=== PATIENT | male | born 1965 | race Asian ===

== ENCOUNTER 2024-11-10 09:59 | Emergency (ER) | payer BC, SELFPAY ==
[2024-11-10 10:27] VITALS: BP 125/90
--- NOTE | 2024-11-10 11:28 | ED.GENMED ---
History of Present Illness
General
Chief Complaint: Musculo-Skeletal Complaint
Time Seen by Provider: 11/10/24 10:58
History of Present Illness
History of Present Illness:
Patient is a 59-year-old man who is otherwise healthy presenting to the emergency department for right hip pain. Patient states that 2 days ago he was exercising and working out his legs. Later that day and the next days noticed pain to right hip.
He states that it is only reproducible in certain positions. He denies any numbness tingling. No radiation. No back pain. He has had sciatica before and this is not similar. He states that his only remains around the joint. He does remember
history of possible arthritis seen on his prior x-rays and thinks that that might be the source. No falls. No fevers or chills. No spinal injections. He has taken naproxen with some relief.
Phy Exam
Physical Exam
Physical Exam:
GENERAL: in no acute distress
HEENT: normocephalic, extraocular movements intact, moist oral mucosa
NECK: normal inspection
RESPIRATORY: no respiratory distress, clear to auscultation bilaterally
CARDIOVASCULAR: regular rate and rhythm
ABDOMEN/: soft, non-distended, non-tender to palpation, no rebound or guarding
EXTREMITIES: non-tender, no edema/swelling
NEUROLOGIC: awake and alert, moves all extremities, full range of motion of right lower extremity, no reproducible tenderness, no sensory deficits
SKIN: warm
Course
Orders/Labs/Results
Orders:
Orders
11/10/24 10:34
Hip, Right 2-3 Views [CR Hip - RT w/wo Pel 2-3 Vw*] Urgent
Comment:
Reason For Exam: pain
Include a pelvis x-ray?: No
11/10/24 11:21
Ketorolac [Toradol] 15 mg IM NOW STA
Vital Signs
Initial and Last Documented VS:
Initial Vital Signs
Temp Pulse Resp BP Pulse Ox
98.2 F 84 16 125/90 98
11/10/24 10:27 11/10/24 10:27 11/10/24 10:27 11/10/24 10:27 11/10/24 10:27
Last Documented Vital Signs
Temp Pulse Resp BP Pulse Ox
98.2 F 84 16 125/90 98
11/10/24 10:27 11/10/24 10:27 11/10/24 10:27 11/10/24 10:27 11/10/24 10:27
MDM/Problems Addressed
Differential Diagnosis Includes:
Patient is a 59-year-old man presenting to the emergency department right hip pain for the past 2 days. Vitals are unremarkable and exam is reassuring. Likely MSK pain versus arthritis. History exam not consistent with fracture. History and exam
not consistent with sciatica. No red flags to suggest osteomyelitis or spinal cord compression or septic joint. Will pain control with Toradol. X-ray obtained per my interpretation with no acute fracture but does have mild degenerative changes.
Patient educated on anti-inflammatory use. Will give him follow-up with orthopedic surgeon. Will discharge at this time.
*Critical Care Note
Total Time (30-74mins, 75-104mins- exclusive of procedures): Not Applicable
ED Attending Note
-
Portions of this chart may have been created with voice recognition software.� Occasional wrong word or��sound alike� substitutions may have occurred due to the inherent limitations of voice recognition software.
Discharge Plan
Departure
Patient Disposition: Home (Routine Discharge)
Date of Disposition: 11/10/24
Time of Disposition: 11:31
Patient with high blood pressure during this ER visit?: No
Discharge Problem:
Acute hip pain
Instructions: Hip Pain ED
Referrals:
Nate Song MD [Active] -
Activity Restrictions/Additional Instructions:
We discussed pain medications:
You may take Ibuprofen (also known as Motrin or Advil). If taking with Tylenol, alternate and take between dosing.
You may take 400-800mg of Ibuprofen per dose, which should be taken every 6-8 hours.
Do not take more than 3200mg (3.2 grams) of Ibuprofen per day.
You may take Tylenol (also known as Acetaminophen) for pain.
You may take 1000mg Acetaminophen (two extra-strength tablets) per dose, which should be taken every 6-8 hours, or three times a day.
If you have normal strength Tylenol, you can take 650mg (two normal strength tablets) every 4-6 hours.
Do not take more than 3,000mg (3 grams) of Acetaminophen per day.
Never take more than as directed on the bottle.
Please see your primary care doctor soon to be reevaluated and to make sure that you are improving. We have included information about establishing care with a doctor if you do not have one.
We talked about your evaluation, diagnosis, and treatment in the Emergency Department today. You must see your primary doctor for recheck and followup care in order to evaluate your progress or any changes. Have your doctor recheck the test
results/information from the ED visit. As discussed, RETURN to the ED if you develop worsening/changing symptoms or have no improvement in symptoms after the treatments provided.
Interventions
Interventions:
*Risk Screen - Suicide Last Done: 11/10/24 10:27
*Neglect/Abuse Screening Last Done: 11/10/24 10:27
Discharge Date and Time
Print Language: PAKISTANI
[2024-11-10] MEDS: TORADOL 15 MG IM (11:41)
[2024-11-10 11:47] VITALS: BP 142/92
== END 2024-11-10 12:25 | disposition home or self-care (01) ==
LOC: EMR 09:59
PROVIDERS: EMERGENCY PHYSICIAN Student in an Organized Health Care Education/Training Program; FAMILY PHYSICIAN Family Medicine
DX: M25.551 Pain in right hip (principal)
CPT/HCPCS: 96372; 99284; 73502

== ENCOUNTER → 2025-02-17 13:27 | Outpatient (REF) | payer BC, SELFPAY | LOC: MRI 3T 13:27 | PROVIDERS: ATTENDING PHYSICIAN Physical Medicine & Rehabilitation; FAMILY PHYSICIAN Family Medicine | DX: M47.27 Other spondylosis with radiculopathy, lumbosacral region (principal) | CPT/HCPCS: 72148 ==

== ENCOUNTER 2025-02-17 14:49 | Emergency (ER) | payer BC, SELFPAY ==
[2025-02-17 15:03] VITALS: BP 116/76
--- NOTE | 2025-02-17 16:04 | ED.GENMED ---
History of Present Illness
General
Chief Complaint: Back Pain
Source: patient
Exam Limitations: none
Time Seen by Provider: 02/17/25 15:30
Nursing documentation reviewed up to this point in time: agreed with
History of Present Illness
History of Present Illness:
Patient is a 59-year-old male who presents to the ER for evaluation of sciatica. Patient has had sciatica since mid October. He was actually seen here November 10 for this pain. Since then he has been seeing [facility]. He was treated by his
family doctor and [facility] with gabapentin and steroids however he has since run out of both medications. He presently comes from MRI. He just had his MRI that was ordered by [facility] today and is scheduled to see them this week. He is asking for
something for discomfort as he has nothing at home. Patient reports this is the same type of static pain that runs from his right buttock thigh down to his right foot. He has numbness and tingling to his toes and foot. This is not new. He has
been dealing with this since October.
he denies any saddle paresthesia denies any weakness to lower extremities denies any bowel or bladder incontinence.
Review of Systems
Review of Systems
Allergies reviewed?: Yes
All Other Systems: ROS reviewed and negative except as documented in HPI and ROS
Constitutional: Reports no symptoms; Denies fever, fatigue or chills
Respiratory: Reports no symptoms
Cardiac: Reports no symptoms
ABD/GI: Reports no symptoms
: Reports no symptoms; Denies incontinence
Skin: Reports no symptoms
Neurological: Reports other (Numbness to right foot for the past several months)
Phy Exam
General Physical Exam
General Presentation: no apparent distress
General age: appears stated age
General Skin: warm and dry
General Habitus: normal
General Mental: alert
General Hydration: appears well hydrated
Neurological Exam
Neurological Exam: alert, oriented x3, no motor deficits, no sensory deficits and other (Normal patellar reflexes bilaterally normal dorsiflexion plantarflexion normal strength with flexion extension normal sensation patient describes subjective
numbness to his foot however sensation is normal objectively)
Minnie Coma Scale
Eye Opening: Spontaneous
Verbal Response: Oriented
Motor Response: Obeys Commands
GCS Total Score: 15
Musculoskeletal Exam
Musculoskeletal Exam: full ROM and other (No swelling to leg no calf tenderness normal color strong distal pulses right lower extremity)
Skin Exam
Skin Exam: normal color and warm/dry
Psychiatric Exam
Psychiatric Exam: normal mood/affect
Course
Orders/Labs/Results
Orders:
Orders
02/17/25 16:04
Dexamethasone Pf [Decadron] 10 mg PO NOW STA
Gabapentin [Neurontin] 300 mg PO NOW STA
Ketorolac [Toradol] 30 mg IM NOW STA
Vital Signs
Initial and Last Documented VS:
Initial Vital Signs
Temp Pulse Resp BP Pulse Ox
97.5 F 75 18 116/76 99
02/17/25 15:03 02/17/25 15:03 02/17/25 15:03 02/17/25 15:03 02/17/25 15:03
Last Documented Vital Signs
Temp Pulse Resp BP Pulse Ox
97.5 F 75 18 116/76 99
02/17/25 15:03 02/17/25 15:03 02/17/25 15:03 02/17/25 15:03 02/17/25 15:03
MDM/Problems Addressed
Differential Diagnosis Includes:
Not limited to sciatica
MDM/Problems Addressed:
Patient has had ongoing issues with sciatica since mid October. He has been evaluate by [facility] orthopedics and had an MRI today but has run out of his gabapentin and prednisone. He complains of persistent sciatica pain which is not new for him.
He describes numbness to his right foot however his sensation is normal objectively. He has good reflexes and good pulses no evidence of swelling/DVT on exam no evidence of infection. He is in no acute distress he denies any bowel or bladder
incontinence. He is ambulatory with a steady gait. He is not weak. Will order prescriptions again for prednisone and gabapentin will send to pharmacy. Patient reports he was taking 100 mg twice a day gabapentin and 300 mg at night which I did
order. He has to follow-up with his orthopedic at [facility] he is awaiting results. MRI was done here in the hospital today however we results are not done at this time.
*Critical Care Note
Total Time (30-74mins, 75-104mins- exclusive of procedures): Not Applicable
ED Attending Note
-
Portions of this chart may have been created with voice recognition software.� Occasional wrong word or��sound alike� substitutions may have occurred due to the inherent limitations of voice recognition software.
Discharge Plan
Departure
Patient Disposition: Home (Routine Discharge)
Date of Disposition: 02/17/25
Time of Disposition: 16:06
Patient with high blood pressure during this ER visit?: No
Condition: Fair
Covid-19: Not Applicable
Discharge Problem:
Sciatica
Instructions: Sciatica (DC)
Prescriptions:
New
prednisone 10 mg Tablet
See Rx Instructions .ROUTE .COMPLEX Qty: 30 0RF
Rx Instructions:
Take By Mouth:
40 mg daily x3 days, 30 mg daily x3 days,
20 mg daily x3 days, 10 mg daily x3 days.
gabapentin 100 mg capsule
100 mg PO DAILY Qty: 30 0RF
Rx Instructions:
100 mg orally in a.m. and 8 hrs after; followed by 300 mg orally q HS.
Referrals:
Luis Betancourt MD [Family Provider] -
Activity Restrictions/Additional Instructions:
As discussed please continue gabapentin and prednisone. These medicines were sent to your pharmacy as directed. Please follow-up with the orthopedics as scheduled return if any worsening of symptoms.
Discharge Date and Time
Print Language: HONDURAN
[2025-02-17] MEDS: NEURONTIN 300 MG PO (16:16)
[2025-02-17] MEDS: DECADRON 10 MG PO (16:17)
[2025-02-17] MEDS: TORADOL 30 MG IM (16:17)
== END 2025-02-17 16:57 | disposition home or self-care (01) ==
LOC: EMR 14:49
PROVIDERS: EMERGENCY PHYSICIAN Emergency Medicine; FAMILY PHYSICIAN Family Medicine
DX: M54.31 Sciatica, right side (principal)
CPT/HCPCS: 99284; 96372